=== PATIENT | female | born 1990 | race Caucasian/White ===

== ENCOUNTER → 2021-04-28 | Outpatient (CLI) | payer OTHER ==
[~2021-04-28] MED LIST: CIPROFLOXACIN500 M1 PO; FLOMAX0.4 MG PO; IBUPROFEN 600600 M1 PO; NORCO 5-325 TA1 EACH PO; PROPRANOLOL 1010 M1 PO; ZOFRAN ODT4 MG PO
== END ==
LOC: SJCVCIMAG 08:20
PROVIDERS: ATTEND Internal Medicine
DX: R00.2 Palpitations (principal); R06.09 Other forms of dyspnea